=== PATIENT | female | born 1990 | race Caucasian/White ===

== ENCOUNTER 2017-10-13 21:43 | Emergency (ER) | payer OTHER, SELFPAY ==
[2017-10-13 21:45] VITALS: BP 134/88; PULSE 93; RESP 14; TEMP 36.4; O2SAT 97; BMI 27.4
--- NOTE | 2017-10-13 23:42 | ED.VISSUMM ---
- ER Visit Summary Date of Service: 10/13/17 Chief Complaint: Facial poison chris History of Present Illness: The patient is a 26 F states she has had itching rash to her face which she believes is poison chris for the last 2-3 days. No other symptoms. Prior history. Physical Examination: Well-appearing female no acute distress. Vital signs stable afebrile. Does not look septic or toxic. H EENT exam unremarkable no rash of face consistent with poison chris. No swelling of the lips and tongue. Eyes are not significantly swollen. No secondary infection. Neck nontender. No lymphadenopathy. Lungs clear to auscultation bilaterally. Heart regular rhythm no murmur. Abdomen soft nontender. Moving all 4 extremities. Neurovascular intact. Test Results: None Emergency Department Course and Treatment: First dose of p.o. prednisone here. Treatment Plan: Prednisone ?1 week. Disposition: Discharge Impression: Facial rash secondary to poison chris This note was generated with [employer] dictation software. It may contain incorrect words, spelling, and punctuation that were not noted in review of the chart prior to signing ED Disposition - Plan for ED Patient: Chief Complaint: Rash Referrals: Care Physician,No Primary [Primary Care Provider] -
--- NOTE | 2017-10-13 23:43 | ED.DEP ---
ED Disposition - Plan for ED Patient: Disposition: Home or Assisted Living Chief Complaint: Rash Instructions: ED Dermatitis Poison Delmi Prescriptions: Prednisone [Deltasone] 40 mg PO DAILY 7 Days tablet Referrals: Matthew Martínez MD [STAFF PHYSICIAN] - As Needed Additional Instructions: Prednisone daily. Benadryl for itching. Follow-up with not improving and return if a lot worse.
[2017-10-13] MEDS: predniSONE 20 MG Tablet 40 MG PO (23:48)
[2017-10-13 23:52] VITALS: BP 112/78; PULSE 71; RESP 17; O2SAT 98
== END 2017-10-13 23:53 | disposition home or self-care (01) ==
PROVIDERS: Emergency Provider Emergency Medicine
DX: L23.7 Allergic contact dermatitis due to plants, except food (principal)
CPT/HCPCS: 99283